=== PATIENT | female | born 1975 | race Caucasian/White ===

== ENCOUNTER 2018-07-27 05:49 | Day surgery (SDC) | END 2018-07-27 11:55 | disposition home or self-care (01) ==

== ENCOUNTER 2019-02-12 11:16 | Emergency (ER) | payer BC ==
[~2019-02-12] VITALS: Ht 160 cm; Wt 96.5 kg
[2019-02-12 11:25] VITALS: Ht 160 cm; Wt 96.5 kg
[2019-02-12] MEDS ORDERED: morphine 4 MG/ML VIAL IV STA (12:05)
[2019-02-12] MEDS ORDERED: SOD CHLORIDE 0.9% 1,000 ML IV STA (12:05)
[2019-02-12] MEDS ORDERED: ONDANSETRON 4 MG INJ IV STA (12:05)
--- NOTE | 2019-02-12 12:15 | ERD ---
ER Documentation Chief Complaint Chief Complaint Epigastric pain with fever since last night HPI This is a 43-year-old female presents to the emergency department complaining of epigastric pain. She indicated the pain began roughly 12 hours prior to arrival. It was localized to the epigastric region but then began to radiate to the right upper quadrant and right lower quadrant. She stated that the pain worsened to 10 out of 10 in intensity. She did not take any analgesic medication prior to arrival. She states she had a tactile fever with shaking and chills. She did not take Motrin or Tylenol. She indicates that in July of last year she had a cholecystectomy, 7 months prior to arrival. Her other surgical history includes a section. She has not experienced any emesis. She denies any constipation or diarrhea. She also denies any chest pain or pressure that radiates to the neck arm back or jaw. No shortness of breath. No alleviating or exacerbating factors to the pain. It is a sharp shooting pain. ROS All systems reviewed and are negative except as per history of present illness. Medications Home Meds No Active Prescriptions or Reported Meds Allergies Allergies: Coded Allergies: aspirin (Verified Allergy, Unknown, 07/27/18) PMhx/Soc History of Surgery: Yes (c sec x3, [facility]) Anesthesia Reaction: No Hx Neurological Disorder: No Hx Respiratory Disorders: No Hx Cardiac Disorders: No Hx Psychiatric Problems: No Hx Miscellaneous Medical Probl: No Hx Alcohol Use: No Hx Substance Use: No Hx Tobacco Use: No Smoking Status: Never smoker Physical Exam Vitals Vital Signs Date Temp Pulse Resp B/P (MAP) Pulse Ox O2 O2 Flow FiO2 Time Delivery Rate 02/12/19 98.9 70 18 148/67 97 11:25 (94) Physical Exam Constitutional:Well-developed. Well-nourished. HEENT:Normocephalic. Atraumatic.Pupils were equal round reactive to light. Moist mucous membranes.No tonsillar exudates. Neck: No nuchal rigidity. No lymphadenopathy. No posterior cervical spine tenderness or step-offs. Respiratory: Not using accessory muscles of respiration.Lungs were clear to auscultation bilaterally. No rhonchi. No rales. No wheezing. Cardiovascular: Regular rate regular rhythm.No murmurs. No rubs were appreciated.S1, S2 normal. Distal pulses are palpable 2+ bilaterally. GI: Abdomen was soft. Epigastric tenderness and tenderness in the right lower quadrant nonspecific over McBurney's point psoas sign negative as well as obturator sign being negative. Non Distended. No pulsatile abdominal masses or bruits. No rebound. No guarding. Bowel sounds were present and normal. Muscle skeletal: Full range of motion of both the upper and lower extremities bilaterally.Normal muscle tone.No assymetrical calf tenderness or swelling. Skin: No petechia, no purpura. No lesions on the palms or the soles of the feet. No maculopapular rash. NEURO: Patient was alert, awake, orientated x3.No facial droop. Gait observed and normal with no ataxia.Speech had regular rate and rhythm. No focal neurological deficits. Result Diagram: 02/12/19 1205 02/12/19 1205 Results 24 hrs Laboratory Tests Test 02/12/19 11:56 02/12/19 12:05 02/12/19 12:34 Urine Color STRAW Urine Clarity CLEAR Urine pH 7.0 Urine Specific Cooks 1.002 Urine Ketones NEGATIVE mg/dL Urine Nitrite NEGATIVE mg/dL Urine Bilirubin NEGATIVE mg/dL Urine Urobilinogen NEGATIVE mg/dL Urine Leukocyte Esterase NEGATIVE Lucas/ul Urine Microscopic RBC 0 /HPF Urine Microscopic WBC 0 /HPF Urine Squamous Epithelial Cells FEW /HPF Urine Bacteria FEW /HPF Urine Hemoglobin 1+ mg/dL Urine Glucose NEGATIVE mg/dL Urine Total Protein NEGATIVE mg/dl White Blood Count 9.2 10^3/ul Red Blood Count 4.33 10^6/ul Hemoglobin 13.3 g/dl Hematocrit 39.4 % Mean Corpuscular Volume 91.0 fl Mean Corpuscular Hemoglobin 30.7 pg Mean Corpuscular 33.8 g/dl Hemoglobin Concent Red Cell Distribution Width 13.2 % Platelet Count 247 10^3/UL Mean Platelet Volume 10.4 fl Immature Granulocytes % 0.300 % Neutrophils % 52.1 % Lymphocytes % 36.9 % Monocytes % 8.1 % Eosinophils % 2.2 % Basophils % 0.4 % Nucleated Red Blood Cells % 0.0 /100WBC Immature Granulocytes # 0.030 10^3/ul Neutrophils # 4.8 10^3/ul Lymphocytes # 3.4 10^3/ul Monocytes # 0.7 10^3/ul Eosinophils # 0.2 10^3/ul Basophils # 0.0 10^3/ul Nucleated Red Blood Cells # 0.0 10^3/ul Prothrombin Time 12.6 Sec Prothrombin Time Ratio 1.0 INR International 0.93 Normalized Ratio Activated Partial Thromboplast 25.8 Sec Time Sodium Level 142 mmol/L Potassium Level 3.9 mmol/L Chloride Level 106 mmol/L Carbon Dioxide Level 27 mmol/L Anion Gap 9 Blood Urea Nitrogen 10 mg/dl Creatinine 0.51 mg/dl Est Glomerular Filtrat > 60 mL/min Rate mL/min Glucose Level 100 mg/dl Calcium Level 9.2 mg/dl Total Bilirubin 0.7 mg/dl Direct Bilirubin 0.00 mg/dl Indirect Bilirubin 0.7 mg/dl Aspartate Amino 33 IU/L Transf (AST/SGOT) Alanine 45 IU/L Aminotransferase (ALT/SGPT) Alkaline Phosphatase 117 IU/L Troponin I < 0.012 ng/ml Total Protein 7.8 g/dl Albumin 4.1 g/dl Globulin 3.70 g/dl Albumin/Globulin Ratio 1.10 Amylase Level 82 U/L Lipase 96 U/L POC Beta HCG, Qualitative NEGATIVE Current Medications Medications Dose Sig/Ekaterina Start Time Status Last (Trade) Ordered Route PRN Stop Time Admin Dose Reason Admin Sodium 1,000 ml @ Q1H STAT 02/12/19 DC 02/12/19 Chloride 1,000 mls/hr IV 12:05 12:23 02/12/19 13:04 Morphine 4 mg ONCE STAT 02/12/19 DC 02/12/19 Sulfate IV 12:05 12:23 (morphine) 02/12/19 12:08 Ondansetron 4 mg ONCE STAT 02/12/19 DC 02/12/19 HCl (Zofran IV 12:05 12:23 Inj) 02/12/19 12:08 IV Flush 10 ml STK-MED 02/12/19 DC 02/12/19 (NS 10 ml) ONCE .ROUTE 13:55 14:09 02/12/19 13:56 Sodium 100 ml @ ud STK-MED 02/12/19 DC 02/12/19 Chloride ONCE .ROUTE 13:55 14:09 02/12/19 13:56 Iohexol 150 ml STK-MED 02/12/19 DC 02/12/19 (Omnipaque ONCE .ROUTE 13:55 14:09 300mg/ ml) 5/31/19 13:56 Procedures/MDM This patient presented to the emergency department with abdominal pain and was seen and evaluated by myself. My differential diagnosis included but was not limited to abdominal aortic aneurysm, appendicitis, pancreatitis, perforated peptic ulcer, perforated viscus, Boerhaave's syndrome or visceral pain such as diverticulitis, DKA, esophagitis, hepatitis or bowel obstruction. The patient was placed on a monitoring engineer, continuous pulse oximetry, and IV access was established by nursing staff. The patient was given intravenous morphine and Zofran for analgesic control. I obtained a 12-lead EKG tracing to rule for atypical myocardial infarction. 12 Lead EKG tracing ordered and reviewed by myself showed: Sinus bradycardia 55 bpm and no arrhythmia. RI interval normal. QRS duration normal. No ST segment elevation No ST segment depression. No changes consistent with acute ischemia. CT scan of the abdomen reviewed by myself showed hepatomegaly. The radiologist also indicated there is no evidence of appendicitis. I indicated the patient I did not have an exact etiology into her symptoms but it did not appear to be an acute life-threatening etiology. Her pain had improved after Toradol and a GI cocktail. She will follow-up with her primary care physician for further evalu ation. The patient was discharged home in fair condition. They were instructed to return to the emergency department at any time if there was any worsening of their condition. The patient stated they would follow up with their PCP in the next 24-48 hours to initiate a suitable medication regimen under the care of their PCP as well as to allow their PCP to monitor any drug reactions. The patient was discharged home with prescriptions after they gave informed consent to the new medication. They were also fully informed by myself on the adverse effects and adverse drug interactions in order to provide adequate safeguards to prevent possible adverse reactions to medications. Departure Diagnosis: Primary Impression: Abdominal pain Abdominal location: right lower quadrant Qualified Codes: R10.31 - Right lower quadrant pain Condition: Serious FARHANA MORALES MD February 12, 2019 12:15
[2019-02-12] MEDS ORDERED: IOHEXOL 300MG/ML 150 ML BTL ONE (13:55)
[2019-02-12] MEDS ORDERED: SOD CHLORIDE 0.9% 100 ML ONE (13:55)
[2019-02-12] MEDS ORDERED: KETOROLAC 30 MG INJ IV STA (15:07)
[2019-02-12] MEDS ORDERED: SUCR1TAB56 PO (15:12)
[2019-02-12] MEDS ORDERED: LIDOCAINE/MYLANTA 40 ML BTL PO ONE (15:30)
[2019-02-12 15:45] VITALS: BP 105/87; PULSE 69; RESP 23
== END 2019-02-12 16:10 | disposition home or self-care (01) ==
LOC: E/R 11:16
DX: R10.31 Right lower quadrant pain (principal)
CPT/HCPCS: 74177; 80053; 81001; 81025; 82150; 83690; 84484; 85025; 85610; 85730; 93005; 96374; 96375; 99285; J2270; J2405; J7030; Q9967; Z7610